=== PATIENT | male | born 1990 | race Asian ===

== ENCOUNTER 2017-08-11 19:14 | Emergency (ER) | payer MEDICAID ==
[~2017-08-11] VITALS: Ht 170.2 cm; Wt 60.8 kg
[~2017-08-11 19:14] MED LIST: HYDROCODON-ACE1 EA15 ORAL; KEFLEX500 MG ORAL
[2017-08-11] MEDS ORDERED: DEPAKOTE ER250 MG ORAL (19:26)
[2017-08-11] MEDS ORDERED: MIRTAZAPINE15 M3 ORAL (19:26)
[2017-08-11 20:15] VITALS: BP 117/77
[2017-08-11] MEDS ORDERED: Tetanus/Diptheria/Pertussis Vaccine 0.5ml Syr IM ONE (20:15)
[2017-08-11] MEDS ORDERED: Lidocaine 1% Plain 30 ml INJ ONE (20:15)
--- NOTE | 2017-08-11 23:15 | Emergency Room Report ---
History of Present Illness General Chief Complaint: Laceration Source: Patient Present Illness HPI 26 yo male patient presents to ER complaining of laceration on arm. Patient reports he punched his hand through a glass window and states he has glass in his arm. Reports cuts on arm that are bleeding. Patient was seen by paramedics at scene of incident. Patient arm was dressed at site. Patient was not taken by ambulance to ER, was driven by family member. Denies hitting head, LOC. Denies chest pain, SOB. Allergies: Coded Allergies: No Known Allergies (Unverified , 01/09/15) Patient History Past Medical History: see triage record Reviewed Nursing Documentation: PMH: Agreed; PSxH: Agreed Nursing Documentation-PMH History Of Psychiatric Problem: Yes - schizo-effective, bipolar Review of Systems All Other Systems: negative except mentioned in HPI Physical Exam Vital Signs Date Time Temp Pulse Resp B/P (MAP) Pulse Ox O2 Delivery O2 Flow Rate FiO2 08/11/17 19:21 97.7 118 14 117/77 96 Room Air 97.7 Sp02 EP Interpretation: reviewed, normal General Appearance: well appearing, no apparent distress, alert, GCS 15, non- toxic Head: normocephalic, atraumatic Medical Decision Making PA Attestation Dr. Hernandez is my supervising Physician whom patient management has been discussed with. Diagnostic Impression: Primary Impression: Injury of upper extremity ER Course Pt. presents to the ED c/o laceration and hand pain s/p punching a window. Ddx considered but are not limited to fracture, sprain, strain, contusion, dislocation, laceration, cellulitis, retained FB. Vital signs: are WNL, pt. is afebrile Ordered X-rays, lidocaine, TDAP. ER COURSE Patient left arm wrapped by paramedics. Informed patient will need to remove dressing and have arm cleaned to assess if any FB retained in arm. Informed patient ordered xray to rule out fracture. Will provide tetanus vaccination, patient does not know vaccination status. Unable to find patient. Nurse and ER avionics repair technician cannot find patient. Patient unable to be found. Patient eloped prior to further evaluation of arm. Last Vital Signs Date Time Temp Pulse Resp B/P (MAP) Pulse Ox O2 Delivery O2 Flow Rate FiO2 08/11/17 19:21 97.7 118 14 117/77 96 Room Air 97.7 Disposition: ELOPED Condition: Unknown Referrals: [facility],REFERR[facility] (PCP) Brad Espinoza Aug 11, 2017 23:15
== END 2017-08-11 20:15 | disposition left against medical advice (07) ==
LOC: EMR 19:50
DX: S61.412A Laceration without foreign body of left hand, initial encounter (principal); W25.XXXA Contact with sharp glass, initial encounter; Y92.9 Unspecified place or not applicable
CPT/HCPCS: 99281

== ENCOUNTER 2018-01-10 21:07 | Emergency (ER) | payer MEDICAID, OTHER ==
[~2018-01-10] VITALS: Ht 170.2 cm; Wt 59.0 kg
[~2018-01-10 21:07] MED LIST changes: +DEPAKOTE ER250 MG ORAL; +MIRTAZAPINE15 M3 ORAL
[2018-01-10 21:15] VITALS: BP 109/73
[2018-01-10] MEDS ORDERED: Bacitracin Oint UD TOPIC ONE (21:30)
[2018-01-10] MEDS ORDERED: BACITRACIN ZIN1 EACH TOPIC (21:51)
[2018-01-10 22:00] VITALS: BP 109/73
--- NOTE | 2018-01-11 04:09 | Emergency Room Report ---
History of Present Illness General Chief Complaint: Pain Source: Patient Present Illness HPI Patient is a 27-year-old male presented after increased right hand pain. Patient had recently punched a window and subsequently injured his hand. He reports having tetanus vaccine approximately 8 years ago. He denies any foreign body sensation. Patient is right-hand dominant. Patient denies any numbness or tingling distally. He denies any pulsatile bleeding. Allergies: Coded Allergies: No Known Allergies (Unverified , 01/09/15) Patient History Past Medical History: see triage record Reviewed Nursing Documentation: PMH: Agreed; PSxH: Agreed Nursing Documentation-PM Past Medical History: No History, Except For History Of Psychiatric Problem: Yes - Schizophrenia, Bipolar, Depression Review of Systems All Other Systems: negative except mentioned in HPI Physical Exam Vital Signs Date Time Temp Pulse Resp B/P (MAP) Pulse Ox O2 Delivery O2 Flow Rate FiO2 01/10/18 21:14 98.1 90 18 109/73 98 Room Air 98.1 General Appearance: well appearing, no apparent distress, alert, GCS 15 Head: normocephalic, atraumatic ENT: hearing grossly normal, normal voice Neck: full range of motion, supple Respiratory: normal inspection, no respiratory distress, speaking full sentences Musculoskeletal: other - multiple small abrasion to dorsum of hand Neurologic: normal inspection, alert, oriented x3, responsive, normal gait Psychiatric: mood/affect normal Skin: no rash Medical Decision Making Diagnostic Impression: Primary Impression: Abrasion, hand ER Course Patient presented for an injury. Differential diagnoses included foreign body, nerve injury, arterial injury among others. The patient's wounds appear to be superficial. The patient was cleansed and topical antibiotics were applied.Patient denies any auditory hallucinations. He denies any thoughts of self injury.The patient was discussed with his mom feels comfortable taking patient home.The patient is advised to follow up with primary care doctor in 1- 2 days. Patient is advised to return if any worsening condition or if any changes in status that are concerning. This report is dictated with [employer] [facility] eligibility and occupancy interviewer software which may occasionally lead to discrepancies related to use of this software. Last Vital Signs Date Time Temp Pulse Resp B/P (MAP) Pulse Ox O2 Delivery O2 Flow Rate FiO2 01/10/18 22:00 98.1 18 109/73 98 Room Air 98.1 01/10/18 21:15 78 Status: improved Disposition: HOME, SELF-CARE Condition: Stable Scripts Bacitracin Zinc* (BACITRACIN ZINC*) 1 Each Packet 1 APPLIC TOPIC THREE TIMES A DAY, #20 PACKET Prov: Amos Hernandez MD 01/10/18 Patient Instructions: Hand Contusion Amos Hernandez MD Jan 11, 2018 04:09
== END 2018-01-10 22:04 | disposition home or self-care (01) ==
LOC: EDBD 21:07 → EMR 21:40
DX: S60.511A Abrasion of right hand, initial encounter (principal); W25.XXXA Contact with sharp glass, initial encounter; Y93.9 Activity, unspecified; Y92.9 Unspecified place or not applicable
CPT/HCPCS: 99282